=== PATIENT | male | born 2000 | race Caucasian/White ===

== ENCOUNTER 2020-01-29 03:01 | Emergency (ER) | payer OTHER ==
[2020-01-29] MEDS ORDERED: Ondansetron ODT TAB* 4 MG SL PRN (03:55)
--- NOTE | 2020-01-29 04:14 | ED ---
Head Injury - HPI Summary HPI Summary: This pt is a 19 Y/O M presenting to [facility] from [place] accompanied by police with a CC of falling 5 feet off of the top bunk and hitting the L side of his head and R shoulder on the ground. The pt states that he woke up on the ground and is unsure of how he fell off. He currently rates the pain a 7/10 in severity. He states that he remembers being found on the floor but does not remember how he made it to the [facility]. He denies any N/V or visual changes. He was seen at the [facility] prior to arriving to [facility]. He has no pertinent PMHx. He states that moving his shoulder in any way hurts. He denies any alleviating factors. - History Of Current Complaint Chief Complaint: EDFall Stated Complaint: HEAD INJURY PER CO Time Seen by Provider: 01/29/20 03:36 Hx Obtained From: Patient Mechanism Of Injury: Fall From Height Of: - 5 feet Onset/Duration: Started Minutes Ago - [facility] Onset of Pain: Immediate Severity Currently: Severe Severity Initially: Severe Pain Intensity: 7 Pain Scale Used: 0-10 Numeric Location of Head Injury: Parietal - L sided Location: Discrete At: Aggravating Factor(s): Other: - nothing Alleviating Factor(s): Other: - nothing Associated Signs And Symptoms: Negative - N/V or visual changes, LOC Duration Unknown, Memory Loss, Other: - R shoulder injury - Allergies/Home Medications Allergies/Adverse Reactions: Allergies Allergy/AdvReac Type Severity Reaction Status Date / Time No Known Allergies Allergy Verified 01/29/20 03:06 PMH/Surg Hx/FS Hx/Imm Hx Previously Healthy: Yes Endocrine/Hematology History: Denies: Hx Diabetes Cardiovascular History: Denies: Hx Hypertension Respiratory History: Denies: Hx Asthma - Cancer History Hx Chemotherapy: No Hx Radiation Therapy: No - Surgical History Surgical History: None - Immunization History Immunizations Up to Date: Yes Infectious Disease History: No Infectious Disease History: Denies: Traveled Outside the [place] in Last 30 Days - Family History Known Family History: Positive: Hypertension - Social History Occupation: Unemployed - Pt resides at [place] Lives: [facility] Alcohol Use: None Hx Substance Use: No Substance Use Type: Reports: None Hx Tobacco Use: Yes Smoking Status (MU): Light Every Day Tobacco Smoker Review of Systems Eyes: Negative Negative: Vomiting, Nausea Positive: Other - R shoulder pain Skin: Other - laceration to L parietal scalp All Other Systems Reviewed And Are Negative: Yes Physical Exam - Summary Physical Exam Summary: General: Well-developed, Well-nourished male. No acute distress. HEENT: Normocephalic, Atraumatic. Superficial abrasion to the L forehead. 3.5 cm laceration to L parietal area Eyes: Conjuctiva normal, PERRL. Ears: TMs within normal limits. Nares: (-) discharge, (-) erythema. Oropharynx: Clear, mucous membranes moist, (-) exudates. Neck: Soft, FROM, (-) lymphadenopathy, (-) thyromegaly, (-) JVD. Cardiovascular: Normal sinus rhythm, (-) murmur. Lungs: Clear to auscultation bilaterally (-) wheezes, (-) rales, (-) rhonchi. Abdomen: Soft, non-tender, non-distended, (-) organomegaly, normal bowel sounds. Back: (-) CVA tenderness Extremities: No edema. Skin: Warm, dry, (-) rash. Neuro: Alert and oriented x3, no focal deficits. Psychiatric: Mood normal, affect flat. Triage Information Reviewed: Yes Vital Signs On Initial Exam: Initial Vitals Temp Pulse Resp BP Pulse Ox 98.1 F 72 16 146/91 98 01/29/20 03:02 01/29/20 03:02 01/29/20 03:02 01/29/20 03:02 01/29/20 03:02 Vital Signs Reviewed: Yes Procedures - Sedation Patient Received Moderate/Deep Sedation with Procedure: No - Laceration/Wound Repair 1 Location: head - L parietal Description: Linear Length, Depth and Shape: 3.5 cms Betadine Prep?: No Laceration/Wound Explored: clean Closure: Richardson #__ - 6 Layer Closure?: Yes Diagnostics - Vital Signs Vital Signs Temp Pulse Resp BP Pulse Ox 01/29/20 03:02 98.1 F 72 16 146/91 98 - Laboratory Lab Statement: Any lab studies that have been ordered have been reviewed, and results considered in the medical decision making process. Head Injury Course/Dx Course Of Treatment: 19-year-old male presents from [facility] with police after fall. He states he fell about 5 feet off the top bunk in his cell. Hit the left side of his head with an obvious laceration on the scalp. Complains of right shoulder pain from the fall. Denies any other injury. He states he was sound asleep and woke up on the floor. Mild pain in the head. No visual changes. No nausea vomiting. Patient was seen at the [facility] and sent here. His chart says he needs a tetanus update. On physical exam he has no neurological deficits. He has a 3.5 cm laceration on the left parietal scalp area. Erythema of the left forehead. He has normal strength sensation and pulses of the right upper arm. He has normal rotation of the shoulder. Patient given ibuprofen. Ice pack. Laceration is repaired with 5 richardson as above. Patient discharged back to [address] [place] [address] with police. Wound care instructions given. Richardson out in 7-10 days. - Diagnoses Provider Diagnoses: Laceration of head, Right shoulder pain Discharge ED - Sign-Out/Discharge Documenting (check all that apply): Patient Departure - discharge - Discharge Plan Condition: Good Disposition: HOME Patient Education Materials: Head Injury (ED), Staple Care (ED), Shoulder Pain (ED) Referrals: Vandana Jim NP [Primary Care Provider] - 2 Days Additional Instructions: PLEASE FOLLOW UP WITH YOUR PRIMARY CARE PHYSICIAN IN 1-3 DAYS RETURN TO THE EMERGENCY DEPARTMENT FOR ANY NEW OR WORSENING SYMPTOMS. Please remove the richardson after 6-10 days depending on the closure of the wound. Avoid showering for 24 hours to let the skin heal. - Billing Disposition and Condition Condition: GOOD Disposition: Home - Attestation Statements Document Initiated by Efe: Yes Documenting Scribe: Lam Akins Provider For Whom Efe is Documenting (Include Credential): Dulce Carr MD Scribe Attestation: Lam Durham, scribed for Dulce Carr MD on 01/30/20 at 0522. Scribe Documentation Reviewed: Yes Provider Attestation: The documentation as recorded by the Lam machado accurately reflects the service I personally performed and the decisions made by me, Dulce Carr MD Status of Scribe Document: Viewed
[2020-01-29] MEDS ORDERED: Ibuprofen TAB* 400 MG PO ONE (04:19)
[2020-01-29] MEDS ORDERED: Tetan/Diph/Pertus SYR(Tdap)* 0.5 ML SYR(BOOSTRIX) use SYR contains LATEX IM ONE (04:23)
[2020-01-29] MEDS ORDERED: Bacitracin OINTMENT* 0.5% 0.5 oz TUBE TOPICAL ONE (04:23)
[2020-01-29 04:55] VITALS: BP 131/72
== END 2020-01-29 04:50 | disposition home or self-care (01) ==
LOC: ED 03:01
DX: S01.01XA Laceration without foreign body of scalp, initial encounter (principal); M25.511 Pain in right shoulder; W17.89XA Other fall from one level to another, initial encounter; Y92.89 Other specified places as the place of occurrence of the external cause; Z23 Encounter for immunization; F17.200 Nicotine dependence, unspecified, uncomplicated
CPT/HCPCS: 12002; 90471; 90715; 99282; A9270-GY